=== PATIENT | male | born 1980 | race Caucasian/White ===

== ENCOUNTER 2016-11-14 17:23 | Emergency (ER) | payer OTHER ==
[2016-11-14 17:32] VITALS: RESP 22; TEMP 97.3
[2016-11-14] MEDS ORDERED: PROMETHAZINE HYDROCHLORIDE 25 MG/ML SOL IM ONE (17:40)
[2016-11-14] MEDS ORDERED: KETOROLAC TROMETHAMINE 30 MG/ML SOL IM ONE (17:40)
[2016-11-14] MEDS ORDERED: PROMETHAZINE HYDROCHLORIDE 25 MG/ML SOL ONE ×2 (17:42→17:45)
[2016-11-14] MEDS ORDERED: KETOROLAC TROMETHAMINE 30 MG/ML SOL ONE (17:42)
[2016-11-14 19:02] VITALS: BP 142/83; PULSE 100; O2SAT 98
== END 2016-11-14 18:34 | DRG 103 ==
LOC: ED 17:23
DX: G43.909 Migraine, unspecified, not intractable, without status migrainosus (principal)
CPT/HCPCS: 96372; 99283; J1885; J2550